=== PATIENT | male | born 1960 | race Caucasian/White ===

== ENCOUNTER 2022-09-04 23:40 | Emergency (ER) | payer OTHER ==
[2022-09-05 00:35] VITALS: BP 129/92; O2SAT 98
[2022-09-05] MEDS ORDERED: Bactroban OINTMENT TP ONE ×2 (00:48→01:02)
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
[2022-09-05 01:21] VITALS: PULSE 80
== END 2022-09-05 01:25 | disposition home or self-care (01) ==
LOC: ED 23:40
DX: S50.812A Abrasion of left forearm, initial encounter (principal); S60.411A Abrasion of left index finger, initial encounter; S60.413A Abrasion of left middle finger, initial encounter; S60.415A Abrasion of left ring finger, initial encounter; S60.511A Abrasion of right hand, initial encounter; W22.09XA Striking against other stationary object, initial encounter; Y92.143 Cell of prison as the place of occurrence of the external cause; Y99.0 Civilian activity done for income or pay; Z72.0 Tobacco use
CPT/HCPCS: 99281; A9270-GY